=== PATIENT | male | born 1990 | race Caucasian/White ===

== ENCOUNTER 2018-03-29 10:45 | Emergency (ER) | payer SELFPAY ==
[2018-03-29 10:51] VITALS: BP 119/60
[2018-03-29] MEDS ORDERED: TDAP ADULT 0.5 ML INJ (BOOSTRIX) IM ONE (10:51)
--- NOTE | 2018-03-29 10:52 | EDPHY ---
H & P Stated Complaint: Lac R venegas on wooden box Time Seen by Provider: 03/29/18 10:51 HPI/ROS: HPI: This is a 27-year-old male who presents with Chief Complaint: Laceration on right venegas wooden box Location: Right lower leg Quality: Laceration Duration: Prior to arrival Signs and Symptoms: + bleeding, no radiation, no numbness, no weakness, no tingling, no incontinence, no decreased range of motion, no swelling, + pain, no fever Timing: Acute Severity: [id number] Context: Patient was working out at the gym participating in [employer] jumping up and down from wooden boxes when he missed the box and scraped his right lower leg on the wooden box. He reports that he felt immediate, constant , moderate pain that was nonradiating in nature. He reports that it started to bleed and he was unable to get it to stop until he applied direct pressure for several minutes. He is ambulatory without any deficits and denies any radiation , weakness, decreased range of motion. Denies LOC/head injury/neck pain/ dizziness/nausea/vomiting/amnesia. Unsure of tetanus status. Modifying Factors: Direct pressure Comment: ROS: A comprehensive 10 system review of systems is otherwise negative aside from elements mentioned in the history of present illness. MEDICAL/SURGICAL/SOCIAL HISTORY: Medical history: Generally healthy. Does not take any regular medications. Surgical history: Denies Social history: Never smoked and denies drug and alcohol use. CONSTITUTIONAL: Polite and cooperative adult white male, awake and alert, no obvious distress HEENT: Atraumatic and normocephalic. NECK: supple EXTREMITIES: 2/2 pedal pulses, strength 5/5, right KNEE: no effusion, no medial and lateral joint line tenderness, full extension to 180, flexion to 120 . No pain with varus and valgus exam. No pain with anterior drawer or posterior drawer test. Extensor mechanism intact. Right lower leg anterior portion shows 7 cm vertical laceration with no active bleeding. DIP/PIP/MCP flexion/extension intact with good light touch sensation. no deformities, no clubbing, no cyanosis or edema. NEUROLOGICAL: no focal neuro deficits. GCS 15. Light touch sensation intact. SKIN: Warm and dry, no erythema. no rash. Good capillary refill. Source: Patient Exam Limitations: No limitations - Personal History Current Tetanus Diphtheria and Acellular Pertussis (TDAP): Unsure - Medical/Surgical History Other PMH: healthy - Social History Smoking Status: Never smoked Constitutional: Initial Vital Signs Temperature (C) 36.6 C 03/29/18 10:48 Heart Rate 96 03/29/18 10:48 Respiratory Rate 18 03/29/18 10:48 Blood Pressure 119/60 03/29/18 10:48 O2 Sat (%) 98 03/29/18 10:48 O2 Delivery Mode Room Air Allergies/Adverse Reactions: No Known Allergies Allergy (Unverified 03/29/18 10:50) Home Medications: Medication Instructions Recorded NK [No Known Home Meds] 03/29/18 Medical Decision Making - Diagnostics Imaging Results: Imaging Impressions Tibia/Fibula X-Ray 03/29/18 10:55 Impression: Negative exam. Procedures: Procedure: Laceration repair. Verbal consent was obtained from the patient. The 7 cm vertical deep simple laceration on the right anterior venegas was anesthetized in the usual fashion using 10 mL of 1% lidocaine with epinephrine. The wound was irrigated, draped and explored to its base with a gloved finger. There were no deep structures involved. No tendon injury was identified. The wound was repaired with a 2 layer closure; #2, 4-0 Vicryl horizontal buried sutures and subcutaneous layer was closed with #6, 4-0 Prolene in a simple interrupted pattern. Good hemostasis was achieved and patient tolerated procedure well. Clean sterile dressing applied. The procedure was performed by myself. ED Course/Re-evaluation: Tetanus booster given Laceration repaired, clean sterile dressing applied and verbal and written wound care instructions provided No signs of neurovascular compromise/tenting of skin/compartment syndrome/ extremities and joints examined above and below area of concern and are neurovascularly intact. This patient was seen under the supervision of my secondary supervising physician. I evaluated care for this patient independently. Discussed this patient with Dr. Talbot who did not see the patient. Differential Diagnosis: Differential diagnosis includes but is not limited to laceration, nerve injury, tendon injury, tibia fracture, fibula fracture. - Data Points Medications Given: Discontinued Medications Diphtheria/Tetanus/Acell Pertussis (Boostrix) 0.5 ml IM .ONCE ONE Stop: 03/29/18 10:52 Last Admin: 03/29/18 11:09 Dose: 0.5 ml Departure - Departure Disposition: Home, Routine, Self-Care Clinical Impression: Laceration of right lower leg without complication Qualifiers: Encounter type: initial encounter Qualified Code(s): S81.811A - Laceration without foreign body, right lower leg, initial encounter Condition: Good Instructions: Laceration (ED), Care For Your Stitches (ED) Additional Instructions: Keep the dressing dry and in place for 48 hours. After 48 hours, you may remove the dressing; wash the site daily with mild soap and water; then pat dry. Take Tylenol 650 mg every 4 hours and/or Ibuprofen 600 mg every 8 hours with food as needed for pain. Apply ice for 30 minutes at a time; 2-3 times per day for the next 1-2 days. The x-rays obtained in the emergency department today demonstrate no evidence of an obvious fracture. Sometimes fractures are not obvious on the initial set of x-rays performed in the ED. For this reason, you should have repeat x-rays performed in 7-10 days if you are having any pain exclude the possibility of an occult fracture. Wound Care Follow-Up: Removal of sutures in [10-14] days. Suture removal is complimentary in uncomplicated cases. Infection or abnormal findings would require reevaluation by the MD. In that case, you may be billed. Referrals: [facility],. [Clinic] - As per Instructions
== END 2018-03-29 12:12 | disposition home or self-care (01) ==
PROC: 0HQKXZZ Repair Right Lower Leg Skin, External Approach (ICD-10-PCS; principal; 2018-03-29)
DX: S81.811A Laceration without foreign body, right lower leg, initial encounter (principal); W22.8XXA Striking against or struck by other objects, initial encounter; Y93.B9 Activity, other involving muscle strengthening exercises; Y92.838 Other recreation area as the place of occurrence of the external cause; Y99.8 Other external cause status